=== PATIENT | male | born 1985 | race Caucasian/White ===

== ENCOUNTER 2018-06-20 10:38 | Emergency (ER) | payer MEDICAID ==
[~2018-06-20] VITALS: Ht 185.4 cm; Wt 83.9 kg
[~2018-06-20 10:38] MED LIST: AMOXICILLIN875 MG PO; ASPIRIN EC81 MG PO; CLINDAMYCIN HC300 MG PO; IBUPROFEN IB200 MG PO; IBUPROFEN600 MG PO; NORCO 5-325 TA1 EACH PO; PENICILLIN V P500 MG PO; PERCOCET 5-3251 EACH PO; SEPTRA DS TABL1 EACH PO; ULTRAM50 MG PO
[2018-06-20] MEDS ORDERED: ASPIRIN81 MG PO (11:02)
--- NOTE | 2018-06-20 11:33 | NUR ---
Patient eligible for alteplase per Stroke DrFazal Patient informed of risk vs benefits. Pharmacist, Lilo Gonzalez reviewed exclusion criteria with patient and found no obvious risk factors for administering alteplase. Patient weighs 84kg. Dosing for stroke = 0.9mg/kg = 76.1mg total dose. 7.6mg given as bolus dose, with the balance of 68.5mg to be infused over 60 mins.
--- NOTE | 2018-06-20 18:26 | EKG ---
[facility] [address] [place] [address] Signed Normal sinus rhythm with sinus arrhythmia Normal ECG When compared with ECG of 23-NOV-2016 17:26, Vent. rate has decreased BY 34 BPM T wave inversion no longer evident in Inferior leads Nonspecific T wave abnormality no longer evident in Lateral leads Confirmed by VIKI NATH MD ([id number]) on 06/20/2018 6:25:49 PM Electronically Signed By: VIKI NATH MD 06/20/18 1826 PATIENT NAME: PHILLIP BROWER CHADWICK Electrocardiogram DATE OF : 83 PHYSICIAN: VIKI NATH MD REPORT #: [id number] REPORT IS CONFIDENTIAL AND NOT TO BE RELEASED WITHOUT AUTHORIZATION
== END 2018-06-20 13:06 | disposition short-term general hospital (02) ==
LOC: ED 10:38
DX: I63.9 Cerebral infarction, unspecified (principal); F41.9 Anxiety disorder, unspecified; Z79.82 Long term (current) use of aspirin; F17.200 Nicotine dependence, unspecified, uncomplicated
CPT/HCPCS: 70450; 71045; 80053; 81001; 84484; 85025; 85610; 85730; 93005; 93010; 96374; 99285; J2997

== ENCOUNTER 2018-06-26 13:28 | Emergency (ER) | payer MEDICAID ==
[~2018-06-26] VITALS: Ht 185.4 cm; Wt 83.9 kg
[~2018-06-26 13:28] MED LIST changes: +ASPIRIN81 MG PO
--- OUTSIDE RECORDS SUMMARY | 2018-06-26 13:32 | XMS ---
PreManage Notification: PHILLIP BROWER Security Plant Operations Vice President Events No recent Security Events currently on file CRITERIA MET - [facility] - 2 Visits in 30 Days CARE PROVIDERS Primary Care Primary Care Current PHONE: [phone] Maxine has no Care Guidelines for this patient. E.D. VISIT COUNT (12 MO.) [address] [facility] TOTAL 2 NOTE: Visits indicate total known visits. ED/UCC VISIT TRACKING (12 MO.) 06/26/2018 13:29 [facility] TYPE: Emergency COMPLAINT: - HEART RATE PROBLEM/SOB/DIZZY 06/20/2018 10:38 [facility] TYPE: Emergency COMPLAINT: - POSS STROKE DIAGNOSES: - intermission coordinator (current) use of aspirin - Nicotine dependence, unspecified, uncomplicated - Anxiety disorder, unspecified - Cerebral infarction, unspecified - Weakness INPATIENT VISIT TRACKING (12 MO.) 06/20/2018 14:07 [facility] [place] TYPE: Cardiology DIAGNOSES: - Other chest pain - Cerebral infarction, unspecified - Hemiplegia, unspecified affecting right dominant side - Personal history of other specified conditions - Bradycardia, unspecified - Migraine with aura, not intractable, without status migrainosus [email or web address]
[2018-06-26] MEDS ORDERED: BUTALB-ACETAMI1 EACH PO (13:38)
== END 2018-06-26 15:10 | disposition home or self-care (01) ==
LOC: ED 13:28
DX: G43.909 Migraine, unspecified, not intractable, without status migrainosus (principal); R55 Syncope and collapse; F41.9 Anxiety disorder, unspecified; Z87.891 Personal history of nicotine dependence; Z79.899 Other long term (current) drug therapy
CPT/HCPCS: 99284

== ENCOUNTER 2019-12-01 19:35 | Emergency (ER) | payer SELFPAY ==
[~2019-12-01] VITALS: Ht 185.4 cm; Wt 83.9 kg
[~2019-12-01 19:35] MED LIST changes: +BUTALB-ACETAMI1 EACH PO
--- OUTSIDE RECORDS SUMMARY | 2019-12-01 19:38 | XMS ---
PreManage Notification: PHILLIP BROWER Security Senior Sql Server Dba Events No recent Security Events currently on file CRITERIA MET - Group Notification - [facility] - Has Care Guidelines CARE PROVIDERS Primary Care Primary Care Current PHONE: Unknown Maxine has no Care Guidelines for this patient. Care History Medical/Surgical 06/27/2018 [facility] - W RECEIVED ED PHYSICIAN - CONSULT- PATIENT NEEDS ASSISTANCE WITH INSURANCE/ PCP/CARDIO/NEUROLOGY REFERRAL. - W SPOKE WITH ABEL- PATIENT IS OVER INCOME FOR MEDICAID SERVICES. - IF PATIENT INCOME/WORK STATUS HAS CHANGED SINCE HE LAST APPLIED FOR BENEFITS CHW CAN HELP ASSIST FOR MEDICAID BENEFITS. - PATIENT NEEDS TO APPLY FOR MEDICAL BENEFITS FROM [employer] FOR INSURANCE ENROLLMENT BEGINS July. - PATIENT CAN APPLY FOR [place] CARE BENEFITS THROUGH THE HOSPITAL UNTIL September BENEFITS ARE APPLIED IF PATIENT SIGNS UP FOR MEDICAL BENEFITS. - W HAS CALLED PATIENT 2X AND LEFT A VOICEMAIL FOR A RETURN CALL. E.D. VISIT COUNT (12 MO.) 1 [facility] TOTAL 1 NOTE: Visits indicate total known visits. ED/UCC VISIT TRACKING (12 MO.) 12/01/2019 19:[address] [facility] [place] TYPE: Emergency COMPLAINT: - MULTIPLE COMPLAINTS INPATIENT VISIT TRACKING (12 MO.) No inpatient visits to display in this time frame [email or web address]
[2019-12-01] MEDS ORDERED: ZOFRAN4 MG PO (23:06)
--- NOTE | 2019-12-02 11:01 | EKG ---
[facility] [address] [place] [address] Signed Normal sinus rhythm with sinus arrhythmia Normal ECG When compared with ECG of 20-JUN-2018 10:50, No significant change was found Confirmed by JEET CHOUDHURY MD ([id number]) on 12/02/2019 11:01:05 AM Electronically Signed By: JEET CHOUDHURY MD 12/02/19 1101 PATIENT NAME: LEONARDAPHILLIP Electrocardiogram DATE OF : 83 PHYSICIAN: JEET CHOUDHURY MD REPORT #: [id number] REPORT IS CONFIDENTIAL AND NOT TO BE RELEASED WITHOUT AUTHORIZATION
== END 2019-12-01 23:27 | disposition home or self-care (01) ==
LOC: ED 19:35
DX: J06.9 Acute upper respiratory infection, unspecified (principal); F41.9 Anxiety disorder, unspecified; Z86.73 Personal history of transient ischemic attack (TIA), and cerebral infarction without residual deficits; F17.200 Nicotine dependence, unspecified, uncomplicated
CPT/HCPCS: 71046; 80053; 84484; 85025; 93005; 93010; 99284-25

== ENCOUNTER 2020-03-13 18:26 | Emergency (ER) | payer SELFPAY ==
[~2020-03-13] VITALS: Ht 185.4 cm; Wt 83.5 kg
[~2020-03-13 18:26] MED LIST changes: +ZOFRAN4 MG PO
--- OUTSIDE RECORDS SUMMARY | 2020-03-13 18:28 | XMS ---
PreManage Notification: PHILLIP BROWER Security Air Cargo Specialist Events No recent Security Events currently on file CRITERIA MET - Group Notification CARE PROVIDERS There are no care providers on record at this time. Maxine has no Care Guidelines for this patient. Care History Medical/Surgical 06/27/2018 [facility] - CHW RECEIVED ED PHYSICIAN - CONSULT- PATIENT NEEDS ASSISTANCE WITH INSURANCE/ PCP/CARDIO/NEUROLOGY REFERRAL. - CHW SPOKE WITH ABEL- PATIENT IS OVER INCOME [...] PATIENT SIGNS UP FOR MEDICAL BENEFITS. - CHW HAS CALLED PATIENT 2X AND LEFT A VOICEMAIL FOR A RETURN CALL. E.D. VISIT COUNT (12 MO.) 2 [facility] TOTAL 2 NOTE: Visits indicate total known visits. ED/UCC VISIT TRACKING (12 MO.) 03/13/2020 18:27 [facility] TYPE: Emergency COMPLAINT: - COUGHING UP BLOOD, FEVER 12/01/2019 19:36 [facility] TYPE: Emergency COMPLAINT: - MULTIPLE COMPLAINTS DIAGNOSES: - Nicotine dependence, unspecified, uncomplicated - Dizziness and giddiness - Cough - Anxiety disorder, unspecified - Acute upper respiratory infection, unspecified - Personal history of transient ischemic attack (TIA), and cere INPATIENT VISIT TRACKING (12 MO.) No inpatient visits to display in this time frame [email or web address]
== END 2020-03-13 20:26 | disposition home or self-care (01) ==
LOC: ED 18:26
DX: J98.8 Other specified respiratory disorders (principal); F17.200 Nicotine dependence, unspecified, uncomplicated; Z20.828 Contact with and (suspected) exposure to other viral communicable diseases
CPT/HCPCS: 71045; 99283-25; C9803; U0002

== ENCOUNTER 2020-07-21 01:34 | Emergency (ER) | payer SELFPAY ==
[~2020-07-21] VITALS: Ht 185.4 cm; Wt 83.5 kg
--- OUTSIDE RECORDS SUMMARY | 2020-07-21 01:36 | XMS ---
PreManage Notification: PHILLIP BROWER Security Gym Teacher Events No recent Security Events currently on file CRITERIA MET - Group Notification CARE PROVIDERS There are no care providers on record at this time. Maxine has no Care Guidelines for this patient. Care History Medical/Surgical 06/27/2018 [facility] - CHW RECEIVED ED PHYSICIAN - CONSULT- [...] RETURN CALL. E.D. VISIT COUNT (12 MO.) 3 [facility] TOTAL 3 NOTE: Visits indicate total known visits. ED/UCC VISIT TRACKING (12 MO.) 07/21/2020 01:34 [facility] TYPE: Emergency COMPLAINT: - EYE PAIN 03/13/2020 18:27 [facility] TYPE: Emergency COMPLAINT: - COUGHING UP BLOOD, FEVER DIAGNOSES: - Cough - Nicotine dependence, unspecified, uncomplicated - Other specified respiratory disorders - Contact with and (suspected) exposure to other viral communicable diseases 12/01/2019 19:36 [facility] TYPE: Emergency COMPLAINT: - MULTIPLE COMPLAINTS DIAGNOSES: - Nicotine dependence, unspecified, uncomplicated - Dizziness and giddiness - Cough - Anxiety disorder, unspecified - Acute upper respiratory infection, unspecified - Personal history of transient ischemic attack (TIA), and cerebral infarction without residual deficits INPATIENT VISIT TRACKING (12 MO.) No inpatient visits to display in this time frame [id number]
== END 2020-07-21 01:55 | disposition home or self-care (01) ==
LOC: ED 01:34
DX: S05.01XA Injury of conjunctiva and corneal abrasion without foreign body, right eye, initial encounter (principal); F41.9 Anxiety disorder, unspecified; Z86.73 Personal history of transient ischemic attack (TIA), and cerebral infarction without residual deficits; F17.200 Nicotine dependence, unspecified, uncomplicated; W22.8XXA Striking against or struck by other objects, initial encounter
CPT/HCPCS: 99283

== ENCOUNTER 2022-01-09 11:53 | Emergency (ER) | payer OTHER ==
[~2022-01-09] VITALS: Ht 185.4 cm; Wt 83.5 kg
--- OUTSIDE RECORDS SUMMARY | 2022-01-09 12:00 | XMS ---
PreManage Notification: PHILLIP BROWER Security Public Health Inspector Events No recent Security Events currently on file CRITERIA MET - Group Notification CARE PROVIDERS There are no care providers on record at this time. Maxine has no Care Guidelines for this patient. Care History Medical/Surgical 06/27/2018 [facility] - CHW RECEIVED ED PHYSICIAN - CONSULT- [...] CALL. E.D. VISIT COUNT (12 MO.) 1 [facility] TOTAL 1 NOTE: Visits indicate total known visits. ED/UCC VISIT TRACKING (12 MO.) 01/09/2022 11:53 [facility] TYPE: Emergency COMPLAINT: - LIGHTHEADED, SOB, WEAK INPATIENT VISIT TRACKING (12 MO.) No inpatient visits to display in this time frame [id number]
--- NOTE | 2022-01-11 17:09 | EKG ---
[facility] [address] [facility] [facility] [place] [address] Signed Sinus rhythm with marked sinus arrhythmia Minimal voltage criteria for LVH, may be normal variant ( Sokolow-Garcia ) Borderline ECG When compared with ECG of 01-DEC-2019 19:47, No significant change was found Confirmed by JEET CHOUDHURY MD ([id number]) on 01/11/2022 5:09:00 PM Electronically Signed By: JEET CHOUDHURY MD 01/11/22 1709 PATIENT NAME: PHILLIP BROWER CHADWICK Electrocardiogram DATE OF : 83 PHYSICIAN: JEET CHOUDHURY MD REPORT #: [id number] REPORT IS CONFIDENTIAL AND NOT TO BE RELEASED WITHOUT AUTHORIZATION
== END 2022-01-09 14:07 | disposition home or self-care (01) ==
LOC: ED 11:53
DX: J20.9 Acute bronchitis, unspecified (principal); Z86.73 Personal history of transient ischemic attack (TIA), and cerebral infarction without residual deficits; F17.200 Nicotine dependence, unspecified, uncomplicated; Z20.822 Contact with and (suspected) exposure to COVID-19
CPT/HCPCS: 71046; 93005; 93010; 99285-25; C9803; U0003

== ENCOUNTER 2022-03-14 14:13 | Emergency (ER) | payer OTHER ==
[~2022-03-14] VITALS: Ht 185.4 cm; Wt 83.5 kg
[~2022-03-14 14:13] MED LIST changes: +HYDROCODON-ACE1 EA10 PO
--- OUTSIDE RECORDS SUMMARY | 2022-03-14 14:16 | XMS ---
PreManage Notification: PHILLIP BROWER Security Party Supply Specialist Events No recent Security Events currently on file CRITERIA MET - Group Notification CARE PROVIDERS There are no care providers on record at this time. Maxine has no Care Guidelines for this patient. Care History Medical/Surgical 06/27/2018 [facility] - CHW RECEIVED ED PHYSICIAN - [...] CALL. E.D. VISIT COUNT (12 MO.) 3 [facility] TOTAL 3 NOTE: Visits indicate total known visits. ED/UCC VISIT TRACKING (12 MO.) 03/14/2022 14:13 [facility] TYPE: Emergency COMPLAINT: - FINGER LAC 02/01/2022 13:39 [facility] TYPE: Emergency COMPLAINT: - RT SHOULDER INJURY DIAGNOSES: - Fall (on) (from) unspecified stairs and steps, initial encounter - Unspecified sprain of right shoulder joint, initial encounter - Pain in right shoulder - Nicotine dependence, unspecified, uncomplicated 01/09/2022 11:53 [facility] TYPE: Emergency COMPLAINT: - LIGHTHEADED, SOB, WEAK DIAGNOSES: - Nicotine dependence, unspecified, uncomplicated - Personal history of transient ischemic attack (TIA), and cerebral infarction without residual deficits - Shortness of breath - Contact with and (suspected) exposure to COVID-19 - Acute bronchitis, unspecified INPATIENT VISIT TRACKING (12 MO.) No inpatient visits to display in this time frame [id number]
== END 2022-03-14 15:10 | disposition home or self-care (01) ==
LOC: ED 14:13
DX: S61.311A Laceration without foreign body of left index finger with damage to nail, initial encounter (principal); Y99.0 Civilian activity done for income or pay; F17.200 Nicotine dependence, unspecified, uncomplicated; W26.0XXA Contact with knife, initial encounter; G43.909 Migraine, unspecified, not intractable, without status migrainosus
CPT/HCPCS: 99282

== ENCOUNTER 2022-08-15 11:25 | Emergency (ER) | payer OTHER ==
[~2022-08-15] VITALS: Ht 185.4 cm; Wt 85.7 kg
--- OUTSIDE RECORDS SUMMARY | 2022-08-15 11:31 | XMS ---
PreManage Notification: PHILLIP BROWER Security Representative Government Relations Events No recent Security Events currently on file CRITERIA MET - Group Notification CARE PROVIDERS There are no care providers on record at this time. Maxine has no Care Guidelines for this patient. Care History Medical/Surgical 06/27/2018 [facility] - CHW RECEIVED ED PHYSICIAN - [...] RETURN CALL. E.D. VISIT COUNT (12 MO.) 4 [facility] TOTAL 4 NOTE: Visits indicate total known visits. ED/UCC VISIT TRACKING (12 MO.) 08/15/2022 11:25 [facility] TYPE: Emergency COMPLAINT: - POSSIBLE STROKE 03/14/2022 14:13 [facility] TYPE: Emergency COMPLAINT: - FINGER LAC DIAGNOSES: - Nicotine dependence, unspecified, uncomplicated - Civilian activity done for income or pay - Laceration without foreign body of left index finger without damage to nail, initial encounter - Laceration without foreign body of left index finger with damage to nail, initial encounter - Migraine, unspecified, not intractable, without status migrainosus - Laceration without foreign body of left index finger with damage to nail, initial encounter - Contact with knife, initial encounter 02/01/2022 13:39 [facility] TYPE: Emergency COMPLAINT: - RT SHOULDER INJURY DIAGNOSES: - Pain in right shoulder - Fall (on) (from) unspecified stairs and steps, initial encounter - Nicotine dependence, unspecified, uncomplicated - Unspecified sprain of right shoulder joint, initial encounter 01/09/2022 11:53 [facility] TYPE: Emergency COMPLAINT: - LIGHTHEADED, SOB, WEAK DIAGNOSES: - Acute bronchitis, unspecified - Shortness of breath - Nicotine dependence, unspecified, uncomplicated - Contact with and (suspected) exposure to COVID-19 - Personal history of transient ischemic attack (TIA), and cerebral infarction without residual deficits INPATIENT VISIT TRACKING (12 MO.) No inpatient visits to display in this time frame [id number]
--- NOTE | 2022-08-16 07:53 | EKG ---
[facility] [address] [place], [place] [address] Signed Sinus bradycardia Otherwise normal ECG When compared with ECG of 09-JAN-2022 12:11, No significant change was found Confirmed by VIKI NATH MD ([id number]) on 08/16/2022 7:53:17 AM Electronically Signed By: VIKI NATH MD 08/16/22 0753 PATIENT NAME: KIMI BROWERBOBBY GENAO Electrocardiogram DATE OF : 83 PHYSICIAN: VIKI NATH MD REPORT #: [id number] REPORT IS CONFIDENTIAL AND NOT TO BE RELEASED WITHOUT AUTHORIZATION
== END 2022-08-15 13:15 | disposition left against medical advice (07) ==
LOC: ED 11:25
DX: I63.9 Cerebral infarction, unspecified (principal); F17.200 Nicotine dependence, unspecified, uncomplicated; Z20.822 Contact with and (suspected) exposure to COVID-19
CPT/HCPCS: 36415; 70450; 70496; 70498; 71045; 80053; 85025; 85610; 85730; 87502; 93005; 93010; 99285-25; C9803; Q3014; Q9967; U0003

== ENCOUNTER 2023-05-22 11:06 | Emergency (ER) | payer OTHER ==
[~2023-05-22] VITALS: Ht 185.4 cm; Wt 103.2 kg
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
--- OUTSIDE RECORDS SUMMARY | ~2023-05-22 | XMS | Continuity of Care Document ---
Demographics + + + | Address | [address] | | | [place] [address] | + + + | Preferred Language | Unknown | + + + | Marital Status | Never | + + + | Confucianist Affiliation | Unknown | + + + | Race | White | + + + | Ethnic Group | Not or | + + + Author + + + | Author | [facility] | + + + | Organization | [facility] | + + + | Address | [address] | | | [place] [address] | + + + | Phone | | + + + Care Team Providers + + + + | Care Tempering Oven Operator Name | Role | Phone | + [...] 2014-06-15 00:00 | Tenosynovitis of finger, | [facility] | | | hand, or wrist | | + + + + | 2014-06-15 00:00 | Tenosynovitis of finger, | [facility] | | | hand, or wrist | | + + + + | 2014-11-04 00:00 | Chest wall pain | [facility] | + + + + | 2014-11-04 00:00 | Chest wall pain | [facility] | + + + + | 2015-03-26 00:00 | Acute bacterial | [facility] | | | tonsillitis | | + + + + | 2015-03-26 00:00 | Acute bacterial | [facility] | | | tonsillitis | | + + + + | 2015-04-02 00:00 | Acute pharyngitis | [facility] | + + + + | 2015-04-02 00:00 | Acute pharyngitis | [facility] | + + + + | 2015-04-08 00:00 | Acute streptococcal | [facility] | | | pharyngitis | | + + + + | 2015-04-08 00:00 | Acute streptococcal | [facility] | | | pharyngitis | | + + + + | 2016-11-23 00:00 | Dehydration | [facility] | + + + + | 2016-11-23 00:00 | Dehydration | [facility] | + + + + | 2018-06-20 00:00 | Cerebrovascular accident | [facility] | | | (CVA) | | + + + + | 2018-06-20 00:00 | Cerebrovascular accident | [facility] | | | (CVA) | | + + + + | 2019-12-01 00:00 | Viral upper respiratory | [facility] | | | tract infection | | + + + + | 2019-12-01 00:00 | Viral upper respiratory | [facility] | | | tract infection | | + + + + | 2020-03-13 00:00 | Viral respiratory | [facility] | | | infection | | + + + + | 2020-03-13 00:00 | Viral respiratory | [facility] | | | infection | | + + + + | 2020-07-21 00:00 | Abrasion of right cornea | [facility] | + + + + | 2020-07-21 00:00 | Abrasion of right cornea | [facility] | + + + + | 2022-01-09 00:00 | Acute bronchitis | [facility] | + + + + | 2022-01-09 00:00 | Acute bronchitis | [facility] | + + + + | 2022-02-01 00:00 | Sprain of right shoulder | [facility] | + + + + | 2022-02-01 00:00 | Sprain of right shoulder | [facility] | + + + + [...] 00:00 | Laceration of left index | [facility] | | | finger | | + + + + | 2022-03-14 00:00 | Laceration of left index | [facility] | | | finger | [...]
--- OUTSIDE RECORDS SUMMARY | 2023-05-22 11:13 | XMS ---
PreManage Notification: PHILLIP BROWER Security Product Safety Associate Events 1 event(s) in the past 18 months Most recent security events: Elopement at [facility] 08/15/2022 11:25 - Patient eloped before treatment completed. - Patient with suicidal and/or homicidal ideations eloped. - Patient eloped with IV in place. Details: PATIENT LEFT AMA CRITERIA MET - Group Notification CARE PROVIDERS -, [place]- Dentist: Variety Saw Operator [facility] PHONE: [phone] Maxine has no Care Guidelines for this patient. Care History Medical/Surgical 06/27/2018 [facility] - CHW RECEIVED ED PHYSICIAN - [...] CALL. E.D. VISIT COUNT (12 MO.) 2 [facility] TOTAL 2 NOTE: Visits indicate total known visits. ED/UCC VISIT TRACKING (12 MO.) 05/22/2023 11:07 [facility] TYPE: Emergency COMPLAINT: - LACERATION 08/15/2022 11:25 [facility] TYPE: Emergency COMPLAINT: - POSSIBLE STROKE DIAGNOSES: - Anesthesia of skin - Cerebral infarction, unspecified - Contact with and (suspected) exposure to COVID-19 - Nicotine dependence, unspecified, uncomplicated INPATIENT VISIT TRACKING (12 MO.) No inpatient visits to display in this time frame [id number]
[2023-05-22] MEDS ORDERED: CEPHALEXIN500 M1 PO (13:08)
[2023-05-22 13:33] VITALS: BP 122/78
== END 2023-05-22 13:31 | disposition home or self-care (01) ==
LOC: ED 11:06
DX: L08.9 Local infection of the skin and subcutaneous tissue, unspecified (principal); S61.217A Laceration without foreign body of left little finger without damage to nail, initial encounter; W26.0XXA Contact with knife, initial encounter; F17.200 Nicotine dependence, unspecified, uncomplicated
CPT/HCPCS: 99283; A9270

== ENCOUNTER 2023-06-25 10:20 | Emergency (ER) | payer OTHER ==
[~2023-06-25] VITALS: Ht 185.4 cm; Wt 103.0 kg
[~2023-06-25 10:20] MED LIST changes: +CEPHALEXIN500 M1 PO
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
[2023-06-25 10:36] LABS: BASOPHILS 0.6 % (0-2); EOSINOPHILS 2.7 % (0-6); HEMATOCRIT 39.8 % (35.0-50.0); HEMOGLOBIN 13.4 g/dL (12.0-18.0); LYMPHOCYTES 40.4 % (24-44); MCHC 33.7 g/dl (30-36); MONOCYTES 9.2 % (0-12); NEUTROPHILS 47.1 % (39-80); PLATELET COUNT 315 K/uL (140-440); RBC 4.47 M/ul (4.3-5.7); RDW 13.6 (10.5-15.0)
[2023-06-25 10:45] LABS: INR 0.97 (0.80-1.30); PROTIME 12.4 Sec (11.2-14.2)
[2023-06-25 10:54] LABS: ALBUMIN 4.1 g/dL (3.4-5.0); ALBUMIN/GLOBULIN RATIO 1.11 (1.1-2.4); ALKALINE PHOSPHATASE 92 U/L (46-116); ALT (SGPT) 32 U/L (14-59); ANION GAP 15.4 (7-21); AST (SGOT) 19 U/L (15-37); BILIRUBIN, TOTAL 0.5 ng/dL (0.2-1.0); BUN/CREATININE RATIO 12.08 (6.0-28.6); CALCIUM 9.3 mg/dL (8.5-10.1); CARBON DIOXIDE 24 mmol/L (21-32); CHLORIDE 103 mmol/L (98-107); CREATININE, SERUM 0.91 mg/dL (0.70-1.30); GLOMERULAR FILTRATION RATE,EST 111 mL/min (>60); MAGNESIUM 1.9 mg/dL (1.8-2.4); POTASSIUM 3.4 mmol/L (3.5-5.1); PROTEIN, TOTAL 7.8 g/dL (6.4-8.2); UREA NITROGEN 11 mg/dL (7-18)
[2023-06-25] MEDS ORDERED: CYCLOBENZAPRINE10 MG PO (12:04)
--- NOTE | 2023-06-25 12:19 | EKG ---
[facility] [address] [facility] [address] [place] [address] Signed Sinus bradycardia with marked sinus arrhythmia Otherwise normal ECG No previous ECGs available Confirmed by ZANE QUESADA MD ([id number]) on 06/25/2023 12:19:25 PM Electronically Signed By: ZANE QUESADA 06/25/23 1219 PATIENT NAME: PHILLIP BROWER CHADWICK Electrocardiogram DATE OF : 83 PHYSICIAN: ZANE QUESADA REPORT #: [id number] REPORT IS CONFIDENTIAL AND NOT TO BE RELEASED WITHOUT AUTHORIZATION
[2023-06-25 12:32] VITALS: BP 92/62
== END 2023-06-25 12:33 | disposition home or self-care (01) ==
LOC: ED 10:20
PROVIDERS: Family Medicine
DX: R07.89 Other chest pain (principal); R00.1 Bradycardia, unspecified; F17.220 Nicotine dependence, chewing tobacco, uncomplicated
CPT/HCPCS: 36415; 71045; 80053; 83735; 84484; 85025; 85379; 85610; 93005; 93010; 99285-25

== ENCOUNTER 2023-09-04 16:59 | Emergency (ER) | payer OTHER ==
[~2023-09-04] VITALS: Ht 185.4 cm; Wt 103.2 kg
[~2023-09-04 16:59] MED LIST changes: +CYCLOBENZAPRINE10 MG PO
[2023-09-04] MEDS ORDERED: CYCLOBENZAPRINE10 MG PO (19:27)
[2023-09-04 19:46] VITALS: BP 113/84
== END 2023-09-04 19:46 | disposition home or self-care (01) ==
LOC: ED 16:59
DX: M54.50 Low back pain, unspecified (principal); F17.200 Nicotine dependence, unspecified, uncomplicated; Z79.899 Other long term (current) drug therapy
CPT/HCPCS: 99283